=== PATIENT | male | born 1960 | race Caucasian/White ===

== ENCOUNTER 2017-04-14 17:10 | Emergency (ER) | payer SELFPAY ==
[~2017-04-14 17:10] MED LIST: ASPI81 PO; BP MED; CHOLESTEROL PILL; HEART PILL; [UNRECOGNIZED DRUG - REMARK]
[2017-04-14 17:30] VITALS: BP 186/87; PULSE 72; RESP 17; TEMP 98; O2SAT 99
[2017-04-14] MEDS ORDERED: MORPHINE SULFATE 4 MG/ML INJ IV PUSH ONE (17:30)
[2017-04-14] MEDS ORDERED: ONDANSETRON HCL 4 MG/2 ML VIAL IV PUSH ONE (17:30)
[2017-04-14] MEDS ORDERED: HYDR-3580 PO (17:39)
[2017-04-14] MEDS ORDERED: ATEN50TA PO (17:39)
[2017-04-14] MEDS ORDERED: AMLO5 PO (17:39)
[2017-04-14] MEDS ORDERED: ASPI-516 PO (17:39)
[2017-04-14] MEDS ORDERED: PANT40TA3 PO (17:39)
[2017-04-14] MEDS ORDERED: LISI10TA3 PO (17:39)
[2017-04-14 18:08] LABS: AUTOMATED NEUTROPHIL # 13.7 TH/MM3 (1.8-7.7); BASOPHIL # 0.1 TH/MM3 (0-0.2); BASOPHIL % 0.6 % (0.0-2.0); EOSINOPHIL % 0.2 % (0.0-4.0); HEMOGLOBIN 13.7 GM/DL (13.0-17.0); LYMPH % 2.8 % (9.0-44.0); LYMPHOCYTE # 0.4 TH/MM3 (1.0-4.8); MEAN CELL VOLUME 99.7 FL (80.0-100.0); MEAN CORPUSCULAR HEMOGLOBIN 34.3 PG (27.0-34.0); MEAN CORPUSCULAR HGB CONC 34.4 % (32.0-36.0); MEAN PLATELET VOLUME 10.8 FL (7.0-11.0); MONO % 6.5 % (0.0-8.0); NEUT % 89.9 % (16.0-70.0); PLATELET COUNT 153 TH/MM3 (150-450); RED BLOOD COUNT 4.01 MIL/MM3 (4.50-5.90); RED CELL DISTRIBUTION WIDTH 12.9 % (11.6-17.2); WHITE BLOOD COUNT 15.3 TH/MM3 (4.0-11.0)
--- NOTE | 2017-04-14 18:27 | PD ---
HPI Chief Complaint: Complaint Time Seen by Provider: 17:18 Travel History International Travel<30 days: No Contact w/Intl Traveler<30days: No Traveled to known affect area: No History of Present Illness HPI 57-year-old male that presents to the ED for evaluation of left groin pain that radiates to the back as well as to the left leg. Per patient she's had this for about 2 days. Per patient he stated yesterday he was in severe until today. 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 Will he was doing heavy lifting today before finishing work the pain became more bearable and he decided to get evaluated. Per patient he contacted one of his friends were apparently is a doctor recommended that he gets evaluated for possible kidney stone versus cauda equina. Patient denies any bowel movement or urinary issues. He denies any history of anything like this before. History of hernias. No injuries. Patient does do a lot of heavy lifting for a living. States that the pain is currently say out of 10. He has not taken anything for this. He denies any trauma. He denies any numbness, tilling, weakness to the legs or arms. No previous injuries or surgeries to the back or neck. No allergies to medication. No other medical issues. PFSH Past Medical History High Cholesterol: Yes Coronary Artery Disease: Yes GERD: Yes Hypertension: Yes ?: Not Social History Alcohol Use: Yes (SOCIAL) Tobacco Use: Yes (1.5 PPD) Substance Use: No Allergies-Medications (Allergen,Severity, Reaction): Coded Allergies: No Known Allergies (Verified Adverse Reaction, Unknown, 04/14/17) Reported Meds & Prescriptions Reported Meds & Active Scripts Active Levaquin (Levofloxacin) 500 Mg Tablet 500 Mg PO DAILY 10 Days Ibuprofen 800 Mg Tab 800 Mg PO Q8H PRN Percocet (Oxycodone-Acetaminophen) 5-325 mg Tab 1 Tab PO Q6H PRN Reported Hydrocodone-Acetaminophen 7.5 Mg-325 Mg Tab 1 Tab PO Q8HR PRN Pantoprazole (Pantoprazole Sodium) 40 Mg Tab 40 Mg PO DAILY Aspirin 81 Mg Chew 81 Mg PO DAILY Atenolol 50 Mg Tab 50 Mg PO DAILY Norvasc (Amlodipine Besylate) 5 Mg Tab 5 Mg PO DAILY Lisinopril 10 Mg Tab 10 Mg PO DAILY Review of Systems Except as stated in HPI: all other systems reviewed are Neg Physical Exam Narrative GENERAL: SKIN: Warm and dry. HEAD: Atraumatic. Normocephalic. EYES: Pupils equal and round. No scleral icterus. No injection or drainage. ENT: No nasal bleeding or discharge. Mucous membranes pink and moist. Tongue is midline. No uvula deviation. NECK: Trachea midline. No JVD. CARDIOVASCULAR: Regular rate and rhythm. No murmurs, S3, S4. RESPIRATORY: No accessory muscle use. Clear to auscultation. Breath sounds equal bilaterally. GASTROINTESTINAL: Abdomen soft, non-tender, nondistended. Hepatic and splenic margins not palpable. MUSCULOSKELETAL: Extremities without clubbing, cyanosis, or edema. No obvious deformities. Tender to palpation on the left testicle with swelling noted. Tender to touch in this area. No other pain is reproducible with touch. Straight leg test negative. Pronator test negative. No lumbar, thoracic, cervical spine tenderness to palpation. NEUROLOGICAL: Awake and alert. No obvious cranial nerve deficits. Motor grossly within normal limits. Five out of 5 muscle strength in the arms and legs. Normal speech. PSYCHIATRIC: Appropriate mood and affect; insight and judgment normal. Data Data Last Documented VS Vital Signs Date Time Temp Pulse Resp B/P (MAP) Pulse Ox O2 Delivery O2 Flow Rate FiO2 04/14/17 19:38 81 16 171/100 (123) 93 Room Air 04/14/17 17:30 98.0 Orders Orders Complete Blood Count With Diff (04/14/17 17:25) Basic Metabolic Panel (Bmp) (04/14/17 17:25) Prothrombin Time / Inr (Pt) (04/14/17 17:25) Act Partial Throm Time (Ptt) (04/14/17 17:25) Urinalysis - C+S If Indicated (04/14/17 17:25) Ct Abd/Pel W Iv Contrast(Rout) (04/14/17 17:25) Iv Access Insert/Monitor (04/14/17 17:25) Ecg Monitoring (04/14/17 17:25) Oximetry (04/14/17 17:25) Morphine Inj (Morphine Inj) (04/14/17 17:30) Ondansetron Inj (Zofran Inj) (04/14/17 17:30) Us Testicles W Doppler (04/14/17 17:36) Gc And Chlamydia Pcr (04/14/17 18:22) Sodium Chlor 0.9% 1000 Ml Inj (Ns 1000 M (04/14/17 19:00) Ceftriaxone Inj (Rocephin Inj) (04/14/17 19:00) Urine Culture (04/14/17 18:50) Iohexol 350 Inj (Omnipaque 350 Inj) (04/14/17 19:19) Levofloxacin 500 Mg Premix Inj (Levaquin (04/14/17 20:00) Ketorolac Inj (Toradol Inj) (04/14/17 20:00) Morphine Inj (Morphine Inj) (04/14/17 20:00) Labs Laboratory Tests Test 04/14/17 17:30 04/14/17 18:50 White Blood Count 15.3 TH/MM3 Red Blood Count 4.01 MIL/MM3 Hemoglobin 13.7 GM/DL Hematocrit 40.0 % Mean Corpuscular Volume 99.7 FL Mean Corpuscular Hemoglobin 34.3 PG Mean Corpuscular Hemoglobin Concent 34.4 % Red Cell Distribution Width 12.9 % Platelet Count 153 TH/MM3 Mean Platelet Volume 10.8 FL Neutrophils (%) (Auto) 89.9 % Lymphocytes (%) (Auto) 2.8 % Monocytes (%) (Auto) 6.5 % Eosinophils (%) (Auto) 0.2 % Basophils (%) (Auto) 0.6 % Neutrophils # (Auto) 13.7 TH/MM3 Lymphocytes # (Auto) 0.4 TH/MM3 Monocytes # (Auto) 1.0 TH/MM3 Eosinophils # (Auto) 0.0 TH/MM3 Basophils # (Auto) 0.1 TH/MM3 CBC Comment DIFF FINAL Differential Comment Prothrombin Time 10.2 SEC Prothromb Time International Ratio 1.0 RATIO Activated Partial Thromboplast Time 26.3 SEC Blood Urea Nitrogen 8 MG/DL Creatinine 0.94 MG/DL Random Glucose 92 MG/DL Calcium Level 9.3 MG/DL Sodium Level 132 MEQ/L Potassium Level 4.1 MEQ/L Chloride Level 97 MEQ/L Carbon Dioxide Level 25.6 MEQ/L Anion Gap 9 MEQ/L Estimat Glomerular Filtration Rate 82 ML/MIN Urine Color YELLOW Urine Turbidity HAZY Urine pH 5.0 Urine Specific [place] 1.012 Urine Protein NEG mg/dL Urine Glucose (UA) NEG mg/dL Urine Ketones 10 mg/dL Urine Occult Blood MOD Urine Nitrite POS Urine Bilirubin NEG Urine Urobilinogen LESS THAN 2.0 MG/DL Urine Leukocyte Esterase LARGE Urine RBC 11 /hpf Urine WBC 90 /hpf Urine Bacteria OCC /hpf Urine Hyaline Casts 1 /lpf Urine Mucus FEW /lpf Microscopic Urinalysis Comment CULTURE INDICATED MDM Medical Decision Making Medical Screen Exam Complete: Yes Emergency Medical Condition: Yes Medical Record Reviewed: Yes Interpretation(s) Last Impressions Scrotum Ultrasound 04/14/17 1736 Signed Impressions: Service Date/Time: Friday, April 14, 2017 17:37 - CONCLUSION: 1. Suspected left epididymitis and/or epididymoorchitis in the proper clinical setting. 2. Moderate left hydrocele, presumably reactive. 3. Tiny spermatocele on the right incidentally noted. 4. No evidence of torsion. Viral Sims MD Abdomen/Pelvis CT 04/14/17 1725 Signed Impressions: Service Date/Time: Friday, April 14, 2017 19:12 - CONCLUSION: 1. No acute abnormality demonstrated. 2. Sigmoid colon diverticulosis. No diverticulitis. Viral Sims MD CBC & BMP Diagram 04/14/17 17:30 Calcium Level 9.3 UA shows UTI Differential Diagnosis Epididymitis versus testicular torsion versus compression fracture versus hernia versus groin muscle pull versus normal exam versus UTI Narrative Course 57-year-old male that presents to the ED for evaluation of left testicular pain and left leg pain. Patient was properly examined and was found to have signs and symptoms of unclear etiology at this time but concerning for testicular torsion versus hernia. He recommended labs and imaging. Do not see any signs of cauda equina as patient has no signs of neurological deficits and no bowel movement or urinary issues. No saddle anesthesia. just pain. Stat ultrasound as well as labs and imaging were ordered. Patient was given IV pain medications. Case was discussed in my attending Dr. Zapata who agrees with plan. Labs and imaging show what appears to be epididymitis. Urine did show significant infection. Case was discussed in my attending agrees the patient can be discharged home with pain management and antibiotics. Patient was started on Levaquin here in the ED. He was given another dose of pain medication as well as anti-inflammatories. He will be sent home with prescriptions for Percocet, ibuprofen and Levaquin. Instructions to follow up the next 48 hours with PCP. See ED for any worsening symptoms. Patient was sent reasons to come back. Close follow with PCP. Diagnosis Primary Impression: Epididymitis, left Patient Instructions: General Instructions, Narcotic given in the ED Additional Instructions: Take medications as prescribed. Follow-up with PCP. See ED for any worsening symptoms. Do not drink or drive while taking pain medication. Apply ice or heat as needed for pain Med/Other Pt SpecificInfo: Prescription(s) given Scripts Levofloxacin (Levaquin) 500 Mg Tablet 500 MG PO DAILY for Infection for 10 Days, #10 TAB 0 Refills Prov: Sumanth Resendiz MD 04/14/17 Ibuprofen (Ibuprofen) 800 Mg Tab 800 MG PO Q8H Y for PAIN SCALE 1 TO 10, #20 TAB 0 Refills Prov: Sumanth Resendiz MD 04/14/17 Oxycodone-Acetaminophen (Percocet) 5-325 mg Tab 1 TAB PO Q6H Y for PAIN, #12 TAB 0 Refills Prov: Sumanth Resendiz MD 04/14/17 Disposition: 01 DISCHARGE HOME Condition: Stable Thomas Padilla Apr 14, 2017 18:27
--- NOTE | 2017-04-14 18:28 | RADRPT ---
EXAM DATE/TIME: 04/14/2017 17:37 [facility] COMPARISON: No previous studies available for comparison. INDICATIONS : Testicular pain. MEDICAL HISTORY : Hypercholesterolemia. Gastroesophageal reflux disease. Coronary artery disease. Hypertension. SURGICAL HISTORY : None. ENCOUNTER: Initial ACUITY: 1 day PAIN SCORE: 5/10 LOCATION: Bilateral testicles. MEASUREMENTS: RIGHT TESTICLE: 3.8 x 2.7 x 1.8cm LEFT TESTICLE: 4.8 x 3.3 x 2.7cm FINDINGS: RIGHT TESTICLE: Homogeneous echotexture without intra or extratesticular mass. Blood flow is symmetric and within no rmal limits. No hydrocele or varicocele. 3 mm epididymal head cyst. Epididymis is otherwise within normal limits. LEFT TESTICLE: Slightly heterogeneous testicular echotexture. Swollen epididymis with hyperemia. Mild hyperemia of t he testis itself. There is a moderate left hydrocele. SCROTUM: Within normal limits. CONCLUSION: 1. Suspected left epididymitis and/or epididymoorchitis in the proper clinical setting. 2. Moderate left hydrocele, presumably reactive. 3. Tiny spermatocele on the right incidentally noted. 4. No evidence of torsion. Viral Sims MD on April 14, 2017 at 18:23 Board Certified Radiologist. This report was verified electronically.
[2017-04-14 18:45] LABS: BICARBONATE 25.6 MEQ/L (21.0-32.0); CALCIUM 9.3 MG/DL (8.5-10.1); CREATININE 0.94 MG/DL (0.60-1.30); PROTHROMBIN TIME - PATIENT 10.2 SEC (9.8-11.6)
[2017-04-14] MEDS ORDERED: cefTRIAXone INJ 1,000 MG in SODIUM CHLORIDE 0.9% INJ 100 ML IV ONE (19:00)
[2017-04-14] MEDS ORDERED: SODIUM CHLOR 0.9% 1000 ML INJ 1,000 ML IV ONE (19:00)
[2017-04-14 19:14] LABS: BACTERIA, URINE OCC /hpf; BILIRUBIN, URINE NEG (NEG); BLOOD, URINE MOD (NEG); GLUCOSE,URINE NEG (NEG); HYALINE CAST, URINE 1 /lpf (RARE); KETONE, URINE 10 mg/dL (NEG); MUCUS URINE FEW /lpf (OCC); NITRITE,URINE POS (NEG); URINE COLOR YELLOW (YELLW/STRAW); URINE LEUKOCYTE ESTERASE LARGE (NEG)
[2017-04-14] MEDS ORDERED: IOHEXOL 350 MG/ML 10 ML VIAL (for RAD DIAG) IVCONTRAST ONE (19:19)
[2017-04-14 19:38] VITALS: BP 171/100; PULSE 81; RESP 16; O2SAT 93
--- NOTE | 2017-04-14 19:43 | RADRPT ---
EXAM DATE/TIME: 04/14/2017 19:12 [facility] COMPARISON: No previous studies available for comparison. INDICATIONS : Left groin and flank pain. IV CONTRAST: 96 cc Omnipaque 350 (iohexol) IV ORAL CONTRAST: No oral contrast ingested. RADIATION DOSE: 5.76 CTDIvol (mGy) MEDICAL HISTORY : Hypertension. Gastroesophageal reflux disease. SURGICAL HISTORY : None. ENCOUNTER: Initial ACUITY: 1 day PAIN SCALE: 6/10 LOCATION: Left flank TECHNIQUE: Volumetric scanning of the abdomen and pelvis was performed. Using automated exposure control and ad justment of the mA and/or kV according to patient size, radiation dose was kept as low as reasonably achievable to obtain optimal diagnostic quality images. DICOM format image data is available electro nically for review and comparison. FINDINGS: LOWER LUNGS: The visualized lower lungs are clear. Suspected emphysema. LIVER: 9 mm hypodensity inferiorly the right hepatic lobe, likely a cyst or other benign structure. There i s no dilation of the biliary tree. No calcified gallstones. SPLEEN: Normal size without lesion. PANCREAS: Within normal limits. KIDNEYS: Normal in size and shape. There is no mass, stone or hydronephrosis. ADRENAL GLANDS: Within normal limits. VASCULAR: There is no aortic aneurysm. BOWEL/MESENTERY: The stomach, small bowel, and colon demonstrate no acute abnormality. There is no free intraperitone al air or fluid. Scattered diverticula of the sigmoid colon. Normal appendix. ABDOMINAL WALL: Within normal limits. RETROPERITONEUM: There is no lymphadenopathy. BLADDER: No wall thickening or mass. REPRODUCTIVE: Within normal limits. INGUINAL: There is no lymphadenopathy or hernia. MUSCULOSKELETAL: Degenerative changes of the spine. No acute bony abnormality demonstrated. CONCLUSION: 1. No acute abnormality demonstrated. 2. Sigmoid colon diverticulosis. No diverticulitis. Viral Sims MD on April 14, 2017 at 19:39 Board Certified Radiologist. This report was verified electronically.
[2017-04-14] MEDS ORDERED: LEVOFLOXACIN 500 MG PREMIX INJ 100 ML IV ONE (20:00)
[2017-04-14] MEDS ORDERED: MORPHINE SULFATE 2 MG/ML INJ IV PUSH ONE (20:00)
[2017-04-14] MEDS ORDERED: KETOROLAC TROMETHAMINE 30 MG/ML (IVP) VIAL IV PUSH ONE (20:00)
[2017-04-14] MEDS ORDERED: IBUP1TAB7 PO (20:10)
[2017-04-14] MEDS ORDERED: PERC5TAB12 PO (20:10)
[2017-04-14] MEDS ORDERED: LEVA500T33 PO (20:10)
[2017-04-14 21:06] VITALS: BP 151/81
== END 2017-04-14 21:10 | disposition home or self-care (01) ==
LOC: NEPE 17:10
DX: N45.3 Epididymo-orchitis (principal); B96.29 Other Escherichia coli [E. coli] as the cause of diseases classified elsewhere; K57.30 Diverticulosis of large intestine without perforation or abscess without bleeding; F17.200 Nicotine dependence, unspecified, uncomplicated; I10 Essential (primary) hypertension; I25.10 Atherosclerotic heart disease of native coronary artery without angina pectoris
CPT/HCPCS: 74177; 76870; 80048; 81001; 85025; 85610; 85730; 87077; 87086; 87186; 87491; 87591; 93975; 96361; 96365; 96375; 96376; 99285; J0696; J1885; J1956; J2270; J2405; J7030; Q9967